=== PATIENT | female | born 1965 | race Caucasian/White ===

== ENCOUNTER 2019-07-23 16:41 | Outpatient (REF) | payer BC, SELFPAY ==
[2019-07-23 22:14] LABS: Calculated LDL 141 mg/dL; Cholesterol 231 mg/dL (<200); HDL Cholesterol 75 mg/dL (40-60); Triglyceride 77 mg/dL (<150)
== END 2019-07-23 17:01 ==
LOC: NCHCN 16:41
PROVIDERS: Visit Provider Internal Medicine
DX: Z13.220 Encounter for screening for lipoid disorders (principal)
CPT/HCPCS: 80061

== ENCOUNTER 2020-01-28 13:13 | Outpatient (REF) | payer BC, SELFPAY ==
--- NOTE | 2020-01-28 11:15 | PAPFT_PTH ---
PATIENT: Ekta Weiss LOC: [facility] U#:[id number] AGE/SX: 54/F ROOM: RE01/28/[address]: Amanda Be : 1965 BED: DIS: 01/28/2020 SPEC #: [id number] RECD: 01/29/20 12:41 STATUS: TSERING REQ #: [id number] DIANA: 01/28/20 11:[address]: Amanda Be DEPT: [facility] Cytology RECD BY: Yris Trejo ENTERED: 01/29/20 12:41 SP TYPE: PAPFT OTHR DR: None Tissues: 1 - CX/ENDOCX FOR PAP SMEARS Procedures: PAP THIN PREP/[facility] Screening HPV DNA PROBE Comments: [id number]
== END 2020-01-28 13:33 ==
LOC: NCHCN 13:13
PROVIDERS: Visit Provider Internal Medicine
DX: Z12.4 Encounter for screening for malignant neoplasm of cervix (principal); Z11.59 Encounter for screening for other viral diseases
CPT/HCPCS: 88142; 87624

== ENCOUNTER 2025-05-20 09:16 | Outpatient (REF) | payer BC, SELFPAY ==
[2025-05-20 14:51] LABS: HCT 42.0 % (36.0-46.0); HGB 13.9 g/dL (11.2-15.7); MCH 29.3 pg (27.0-33.0); MCHC 33.1 % (32.0-36.0); MCV 88 fL (80-95); MPV 10.2 fL (8.0-11.0); Platelet Count 285 10^3/uL (130-400); RBC 4.75 10^6/uL (3.93-5.22); RDW 11.7 % (11.7-14.6); RDW-SD 37.5 fL; WBC 3.74 10^3/uL (4.4-10.8)
[2025-05-20 15:12] LABS: Anion Gap 6.1 mmol/L (3-11); BUN 16 mg/dL (9-23); CO2 28.9 mmol/L (20.0-31.0); Calcium 9.0 mg/dL (8.3-10.6); Chloride 109 mmol/L (98-107); Cholesterol 232 mg/dL (<200); Glucose 96 mg/dL (74-106); HDL Cholesterol 81 mg/dL (>40); Potassium 4.2 mmol/L (3.5-5.1); Sodium 144 mmol/L (136-145)
== END 2025-05-20 09:17 | disposition home or self-care (01) ==
LOC: NCHCN 09:16
PROVIDERS: PCP Internal Medicine; Visit Provider Internal Medicine
DX: E78.5 Hyperlipidemia, unspecified (principal); D72.819 Decreased white blood cell count, unspecified
CPT/HCPCS: 80048; 80061; 85027

== ENCOUNTER 2025-05-29 16:26 | Outpatient (REF) | payer BC, SELFPAY ==
--- NOTE | 2025-05-29 13:30 | PAPFT_PTH ---
PATIENT: Ekta Weiss LOC: [facility] U#:[id number] AGE/SX: 60/F ROOM: RE05/29/[address]: Amanda Be : 1965 BED: DIS: 05/29/2025 SPEC #: [id number] RECD: 05/29/25 18:35 STATUS: TSERING RELupe #: [id number] DIANA: 05/29/25 13:[address]: Amanda Be DEPT: [facility] Cytology RECD BY: Yris Trejo Tissues: 1 - CX/ENDOCX FOR PAP SMEARS Procedures: PAP THIN PREP/[facility] Screening HPV DNA PROBE Comments: [id number] (HPV 16 & 18/45)
== END 2025-05-29 16:27 | disposition home or self-care (01) ==
LOC: NCHCN 16:26
PROVIDERS: PCP Internal Medicine; Visit Provider Internal Medicine
DX: Z12.4 Encounter for screening for malignant neoplasm of cervix (principal)
CPT/HCPCS: 88142; 87624